=== PATIENT | female | born 1990 | race Caucasian/White ===

== ENCOUNTER 2020-04-21 05:24 | Outpatient (CLI) | payer OTHER, SELFPAY ==
[2020-04-21 05:44] VITALS: BMI 45.9
[2020-04-21 05:53] VITALS: TEMP 37.1; O2SAT 98
[2020-04-21 05:54] VITALS: BP 118/74; PULSE 106
[2020-04-21 06:33] VITALS: BP 113/68; PULSE 98
[2020-04-21 06:46] LABS: Absolute Lymphocyte Count 2.24 X10^3/uL (0.83-4.51); Absolute Neutrophil Count 8.5 X10^3/uL (2.0-7.7); Basophil# 0.03 X10^3/uL; Basophil% 0.3 % (0-1); Eosinophil# 0.11 X10^3/uL; Hemoglobin 11.8 g/dL (12.0-15.0); Lymphocyte # 2.24 X10^3/ul (4.0); Lymphocyte % 19.5 % (19-41); Mean Corp Hgb Conc 31.9 g/dL (32-36); Mean Corpuscular Hgb 27.2 pg (27.0-32.0); Mean Corpuscular Volume 85.3 fL (81-99); Mean Platelet Vol. 13.1 fl (6.2-12.0); Monocyte# 0.59 X10^3/uL; Monocyte% 5.1 % (0-10); NRBC Flagged by Analyzer 0 % (0-5); Neutrophil # 8.47 X10^3/uL (2.7-7.7); Neutrophil % 73.7 % (47-70); Platelet Count 140 K/mm3 (150-450); RBC Distribution Width SD 39.8 fl (35.1-43.9); Red Blood Count 4.34 M/mm3 (4.2-5.4); White Blood Count 11.5 K/mm3 (4.4-11.0)
[2020-04-21 06:50] VITALS: BP 120/76; PULSE 93
[2020-04-21 07:00] LABS: Protein, Urine (Random) 14.2 mg/dL (<11.9); Protein:Creat Ratio 134 mg/g CRE (0-200)
[2020-04-21 07:04] VITALS: BP 121/76; PULSE 93
[2020-04-21 07:18] LABS: ALB/GLOB Ratio 0.5 RATIO (0.9-2.4); AST(SGOT) 16 U/L (15-37); Alanine Aminotransfer ALT/SGPT 19 U/L (13-56); Albumin, Serum 2.3 g/dL (3.2-5.0); Alkaline Phosphatase 146 U/L (45-117); Amylase 47 U/L (25-115); Anion Gap 9 (5-15); BUN 9 mg/dL (7-18); BUN/Creat Ratio 11.3 RATIO (10-20); Calcium,Total 8.4 mg/dL (8.5-10.1); Chloride 106 mmol/L (98-107); EST Glomerular Filtration Rate 91 mL/min (>60); Est Glom Filt Rate - Afr Amer 110 mL/min (>60); Estimated Creatinine Clearance 106.56 ml/min; Globulin 4.2 g/dL (2.2-4.2); Glucose 100 mg/dL (74-106); Lipase 113 U/L (73-393); Potassium 3.7 mmol/L (3.5-5.1); Protein, Total 6.5 g/dL (6.4-8.2); Sodium Level 138 mmol/L (136-145); Uric Acid 4.5 mg/dL (2.6-6.0)
[2020-04-21 07:26] VITALS: BP 111/71; PULSE 88; TEMP 37.4
[2020-04-21] MEDS: Mag Hydrox/Al Hydrox/Simeth 30 ML UDC PO (07:40)
[2020-04-21] MEDS: Ondansetron 4 MG/2 ML Vial IV (07:40)
[2020-04-21] MEDS: HYDROmorphone 1 MG/ML Syringe IV (07:40)
--- NOTE | 2020-04-29 08:37 | OB.TRI.PN_ITS ---
Progress Notes Date of Service: 04/21/20 Progress Note: at 37w3d presenting for RUQ pain, back pain and mild headache. Denies any vaginal bleeding, leakage of fluid, or contractions. Pain 7/10 O: Gen: Alert and oriented x3 Heart: RRR, no murmur Lungs: Clear to auscultation bilaterally Abdomen: Gravid, non tender Cervix closed FHR 135, mod, accels, irregul ctx Mom's Current Diagnoses Dorsalgia, unspecified 04/21/20 Other specified related conditions, third trimester 04/21/20 Right upper quadrant pain 04/21/20 Headache, unspecified 04/21/20 37 weeks gestation of 04/21/20 Mom's Labs & Results 04/21/20 04/21/20 04/21/20 06:30 06:30 06:30 WBC 11.5 H RBC 4.34 Hgb 11.8 L Hct 37.0 MCV 85.3 MCH 27.2 MCHC 31.9 L RDW Std Deviation 39.8 RDW Coeff of Ajay 13.0 Plt Count 140 L MPV 13.1 H Immature Gran % (Auto) 0.400 Neut % (Auto) 73.7 H Lymph % (Auto) 19.5 [place] % (Auto) 5.1 Eos % (Auto) 1.0 Baso % (Auto) 0.3 Absolute Neuts (auto) 8.5 H Absolute Lymphs (auto) 2.24 Nucleated RBC % 0 Sodium 138 Potassium 3.7 Chloride 106 Carbon Dioxide 23.0 Anion Gap 9 BUN 9 Creatinine 0.80 Estim Creat Clear Calc 106.56 Est GFR (MDRD) Af Amer 110 Est GFR (MDRD) Non-Af 91 BUN/Creatinine Ratio 11.3 Glucose 100 Uric Acid 4.5 Calcium 8.4 L Total Bilirubin 0.60 AST 16 ALT 19 Alkaline Phosphatase 146 H Total Protein 6.5 Albumin 2.3 L Globulin 4.2 Albumin/Globulin Ratio 0.5 L Amylase 47 Lipase 113 U Random Total Protein 14.2 H Urine Creatinine 106.00 Protein/Creatinin Ratio 134 A:Musculoskeletal Pain P: 1) labs and BP nml 2) dilaudid for pain, zofran for nausea 3) D/C home. Preeclampia precautions reviewed. Laboratory Studies: Laboratory Tests 04/21/20 04/21/20 04/21/20 Range/Units 06:30 06:30 06:30 WBC 11.5 H (4.4-11.0) K/mm3 RBC 4.34 (4.2-5.4) M/mm3 Hgb 11.8 L (12.0-15.0) g/dL Hct 37.0 (37-47) % MCV 85.3 (81-99) fL MCH 27.2 (27.0-32.0) pg MCHC 31.9 L (32-36) g/dL RDW Std Deviation 39.8 (35.1-43.9) fl RDW Coeff of Ajay 13.0 (11.6-14.6) % Plt Count 140 L (150-450) K/mm3 MPV 13.1 H (6.2-12.0) fl Immature Gran % (Auto) 0.400 (0.0-0.9) % Neut % (Auto) 73.7 H (47-70) % Lymph % (Auto) 19.5 (19-41) % [place] % (Auto) 5.1 (0-10) % Eos % (Auto) 1.0 (0-5) % Baso % (Auto) 0.3 (0-1) % Absolute Neuts (auto) 8.5 H (2.0-7.7) X10^3/uL Absolute Lymphs (auto) 2.24 (0.83-4.51) X10^3/uL Nucleated RBC % 0 (0-5) % Sodium 138 (136-145) mmol/L Potassium 3.7 (3.5-5.1) mmol/L Chloride 106 (98-107) mmol/L Carbon Dioxide 23.0 (21.0-32.0) mmol/L Anion Gap 9 (5-15) BUN 9 (7-18) mg/dL Creatinine 0.80 (0.55-1.02) mg/dL Estim Creat Clear Calc 106.56 ml/min Est GFR (MDRD) Af Amer 110 (>60) mL/min Est GFR (MDRD) Non-Af 91 (>60) mL/min BUN/Creatinine Ratio 11.3 (10-20) RATIO Glucose 100 (74-106) mg/dL Uric Acid 4.5 (2.6-6.0) mg/dL Calcium 8.4 L (8.5-10.1) mg/dL Total Bilirubin 0.60 (0.20-1.00) mg/dL AST 16 (15-37) U/L ALT 19 (13-56) U/L Alkaline Phosphatase 146 H (45-117) U/L Total Protein 6.5 (6.4-8.2) g/dL Albumin 2.3 L (3.2-5.0) g/dL Globulin 4.2 (2.2-4.2) g/dL Albumin/Globulin Ratio 0.5 L (0.9-2.4) RATIO Amylase 47 (25-115) U/L Lipase 113 (73-393) U/L U Random Total Protein 14.2 H (<11.9) mg/dL Urine Creatinine 106.00 (NO RANGE EST.) mg/dL Protein/Creatinin Ratio 134 (0-200) mg/g CRE
== END 2020-04-21 08:55 | disposition home or self-care (01) ==
LOC: WPOUT 05:41 → OBT 05:42 → WP 07:16
PROVIDERS: PCP Family Medicine; Visit Provider Advanced Practice Midwife
DX: O26.893 Other specified pregnancy related conditions, third trimester (principal); R10.11 Right upper quadrant pain; M54.9 Dorsalgia, unspecified; R51.9 Headache, unspecified; Z3A.37 37 weeks gestation of pregnancy
CPT/HCPCS: 96374; 96375; 36415; 59025; 59050; 80053; 82150; 82570; 83690; 84156; 84550; 85025; 99218; G0378; J2405

== ENCOUNTER → 2020-04-29 17:24 | Outpatient (CLI) | payer OTHER, SELFPAY ==
[2020-04-21 05:44] VITALS: BMI 45.9
== END ==
PROVIDERS: PCP Family Medicine; Visit Provider Obstetrics & Gynecology
DX: Z03.818 Encounter for observation for suspected exposure to other biological agents ruled out (principal)
CPT/HCPCS: 87635; C9803; U0005; U0003

== ENCOUNTER 2020-05-01 23:55 | Inpatient (IN) | payer OTHER, SELFPAY ==
[2020-05-01 22:59] VITALS: BMI 46.2
[2020-05-01 23:16] VITALS: BP 131/77; PULSE 91; TEMP 36.8; O2SAT 98
[2020-05-02] VITALS (23 sets, daily range): BP systolic 95–131; BP diastolic 51–83; PULSE 75–111; RESP 12–29; TEMP 36.3–37.1; O2SAT 94–100
[2020-05-02] MEDS: 0.9% Saline Lock 10 ML Syringe IV ×5 (00:05→19:50)
[2020-05-02] MEDS: Lactated Ringers 1,000 ML 999 ML IV (00:05)
[2020-05-02 00:22] LABS: Absolute Lymphocyte Count 2.68 X10^3/uL (0.83-4.51); Absolute Neutrophil Count 8.2 X10^3/uL (2.0-7.7); Basophil# 0.04 X10^3/uL; Basophil% 0.3 % (0-1); Eosinophils% 0.8 % (0-5); Hematocrit 36.8 % (37-47); Hemoglobin 11.9 g/dL (12.0-15.0); Lymphocyte # 2.68 X10^3/ul (4.0); Lymphocyte % 22.8 % (19-41); Mean Corp Hgb Conc 32.3 g/dL (32-36); Mean Corpuscular Hgb 27.4 pg (27.0-32.0); Mean Corpuscular Volume 84.6 fL (81-99); Mean Platelet Vol. 13.7 fl (6.2-12.0); Monocyte# 0.76 X10^3/uL; Monocyte% 6.5 % (0-10); NRBC Flagged by Analyzer 0 % (0-5); Neutrophil # 8.15 X10^3/uL (2.7-7.7); Neutrophil % 69.3 % (47-70); Platelet Count 151 K/mm3 (150-450); RBC Distribution Width CV 13.3 % (11.6-14.6); RBC Distribution Width SD 41.6 fl (35.1-43.9); Red Blood Count 4.35 M/mm3 (4.2-5.4); White Blood Count 11.8 K/mm3 (4.4-11.0)
[2020-05-02] MEDS: Ondansetron 4 MG/2 ML Vial IV (01:53)
[2020-05-02] MEDS: fentaNYL 100 MCG/2 ML Ampul IV (03:40)
[2020-05-02] MEDS: Lactated Ringers 500 ML 999 ML IV (04:44)
[2020-05-02] MEDS: Lactated Ringers 1,000 ML 150 ML IV (05:40)
[2020-05-02] MEDS: Sodium Citrate/Citric Acid 30 ML UDC PO (05:40)
[2020-05-02] MEDS: Acetaminophen 500 MG Tablet 1000 MG PO ×3 (05:44→18:49)
--- NOTE | 2020-05-02 06:57 | PCM.HP.BLA ---
History and Physical Date of Admission: 05/02/20 Pre-Op History and Physical ? HPI: The patient is a 29 year old female presenting for pre-operative visit. She is scheduled for? and?bilateral salpingectomy, for?previous c/s, LGA fetus and polyhydramnios and sterilization request on?05/04/2020. ??Procedure discussed along with risks, benefits and complications. ?Other alternatives discussed for management. Consent form signed??Yes.? PAST MEDICAL HISTORY PAST MEDICAL HISTORY Diagnosis Date ? Anxiety in in third trimester, antepartum 02/24/2020 ? Asthma ? ? childhood asthma ? Chronic headaches ? ? no issues since 2016 ? ? PAST SURGICAL HISTORY PAST SURGICAL HISTORY Procedure Laterality Date ? DELIVERY ONLY ? 2019 ? Cat2, remote from delivery ? TONSILLECTOMY HX ? 1997 ? ? CURRENT MEDICATIONS Current Outpatient Medications Medication Sig Dispense Refill ? ondansetron (ZOFRAN) 4 mg tablet Take 1 tablet by mouth every 8 hours as needed for Nausea/Vomiting. 30 tablet 0 ? phenazopyridine (PYRIDIUM) 100 mg tablet Take 1 tablet by mouth three times daily as needed. 9 tablet 0 ? sertraline (ZOLOFT) 25 mg tablet Take 2 tablets by mouth once daily. Start by taking one tablet by mouth once daily for one week. Then increase to two tablet by mouth once daily. 60 tablet 2 ? famotidine (PEPCID) 40 mg tablet Take 1 tablet by mouth once daily. 30 tablet 2 ? MAGNESIUM ORAL Take by mouth twice daily. ? ? ? acetaminophen (TYLENOL) 325 mg tablet Take 650 mg by mouth every 6 hours as needed. ? ? ? Izbmfezv-Tj-Xrz-Fe-FA ( VITAMIN) tab Take 1 tablet by mouth. ? ? ? No current facility-administered medications for this visit. ? ALLERGIES:?Suprax [Cefixime] ? PERSONAL HISTORY:? SOCIAL HISTORY Social History ? Tobacco Use ? Smoking status: Former Smoker ? ? Years: 3.00 ? ? Quit date: 2012 ? ? Years since quittin.0 ? Smokeless tobacco: Never Used Substance Use Topics ? Alcohol use: No ? Drug use: No ? FAMILY HISTORY:? FAMILY HISTORY FAMILY HISTORY Problem Relation Age of Onset ? Headache Mother ? ? Diabetes Father ? ? Multiple Sclerosis Brother ? ? Diabetes Maternal Grandmother ? ? Hypertension Maternal Grandmother ? ? Ovarian cancer Paternal Grandmother ? ? Heart Paternal Grandfather ?CHF ? Breast Cancer No Family History ? ? Cervical Cancer No Family History ? ? Uterine Cancer No Family History ? ? Colon Cancer No Family History ? ? Pancreatic Cancer No Family History ? ? Prostate Cancer No Family History ? ? REVIEW OF SYMPTOMS: GENERAL: denies fevers or chills ENDOCRINOLOGY: has not been on steroids Cardiology : denies palpitations or chest pain Respiratory: denies SOB or cough Hematology: denies history of prolonged bleeding or easy bruising or VTE Allergy: Denies history of personal or family history of allergy to anesthesia ? ? PHYSICAL EXAMINATION: ? VITALS:?Blood pressure 114/70, weight 300 lb (136.1 kg), last menstrual period 08/03/2019, currently . ? GENERAL:??The patient is well nourished, well hydrated in no acute distress. ?, The patient is oriented to time, place, and person. NECK:?Supple. No lynphadenopathy, normal thyroid, no thyromegaly. LUNGS:?Clear to auscultation bilaterally. no wheezes, rhonchi or rales HEART:?Regular rate and rhythm, Normal heart sounds and No murmurs or gallops ABD- soft, nontender, gravid ? IMPRESSION:?Estimated Date of Delivery: 05/09/20? for repeat c/s and bilateral salpingectomy for sterilization request ? ? PLAN:???The risks/benefits/alternatives and personal involved for the planned?c/s and bilateral salpingectomy?were reviewed with the patient. Her questions were answered to her satisfaction and she desires to proceed. ?Consent was signed. ?I reviewed with her postop instructions and expectations. ? ? I have reviewed and updated past medical and surgical history, medications and allergies. This H&P was completed in my office on 04/29/20 Update- Patient arrived 05/02/2020 with SROM and contractions. C/s to be performed today due to labor and SroM
--- NOTE | 2020-05-02 06:58 | OP.PCM_ITS ---
Delivery Classification: Scheduled Final GRADY: 05/10/20 Final GRADY Source: US <20 weeks Gestational age: 38 Weeks and 6 Days clinical science liaison: Ryan Moraes Type of Anesthesia:: Spinal Special Medications: duramorph Implants Used: none Date of Procedure: 05/02/20 Pre-Operative Diagnosis: 39 weeks, previous c/s, SROM, sterilization request Post-Operative Diagnosis: same Description of Procedure: The patient was taken to the operating room. She was prepped and draped in the dorsal supine position with a leftward tilt. A Pfannenstiel skin incision was made approximately 2 cm above the symphysis pubis and carried through to underlying layer fascia with the scalpel. The fascia was incised incised in the midline and extended laterally with the Herrera scissors. The fascia was dissected off the rectus muscles with blunt and sharp dissection. The rectus muscles were in the midline and the peritoneum was entered bluntly. The peritoneal incision was stretched and the bladder blade was placed. The uterine incision was made in a low transverse fashion with the scalpel and extended superiorly and inferiorly with blunt dissection. The amniotic membranes were ruptured bluntly and clear amniotic fluid returned. The infant's head was brought to the incision in the flexed position and delivered without difficulty. The remainder of the was delivered with gentle traction and fundal pressure in the standard fashion. The mouth and nares were bulb suctioned. The cord was clamped and cut as the was stimulated. Cord clamping was delayed. The infant was handed off to the waiting nursing staff. The placenta was delivered with fundal massage and gentle traction in the standard fashion. The uterus was exteriorized and cleared of all clots and debris. . The uterine incision was closed with #1 Vicryl in a running locked fashion. A second layer of the same suture was used in an imbricating fashion. The incision was examined and was found to be hemostatic. However, there was a small hematoma in the uterine serosa near the midline incision. 2 [id number] 0 Vicryl sutures were placed around this and hemostasis was noted in the hematomas were not extending. The bilateral salpingectomy was then performed. The right fallopian tube was identified and followed out to the fimbriated ends. It was held up by Ray clamps. The antimesenteric portion was clamped, sealed, and transected with the LigaSure device. Hemostasis was noted. The cornual insertion of the tube was then clamped across, sealed and transected with the LigaSure device. All pedicles were hemostatic. The same procedure was performed on the contralateral side. The uterus was placed to the peritoneal cavity which was cleared of all clots and debris and again the tubal sites were hemostatic. The hematoma on the uterine surface was not extending. Some Luther was placed over the uterine incision. The uterus was placed back into the peritoneal cavity and hemostasis was again confirmed. The rectus muscles were examined and any bleeding was Bovie cauterized. The parietal peritoneum and rectus muscles were closed en bloc with an 0 Vicryl running suture. The surgical teams outer gloves were then changed. The rectus fascia was examined and any bleeding was Bovie cauterized and the rectus fascia was closed with #1 PDS suture in a running standard fashion. The subcutaneous tissue was examining and any bleeding was Bovie cauterized. The subcutaneous tissue was reapproximated with 3-0 Vicryl suture. The skin was closed in a subcuticular fashion by the MUSIC PRODUCER with me present in the labor and delivery suite. I performed the remainder of the procedure with assistance. All sponge, lap, and needle counts were correct. The patient was taken to her room for recovery in a stable condition. Start time 0624 Delivery time 06 Stop time 0704 Amniotic Membrane Rupture Type: Spontaneous Amniotic Fluid Description: Clear Placenta Disposition: [facility] Specimen(s) sent to pathology: bilateral fallopian tubes Drain: Minaya to straight drain Fluids Replaced: 1000 mL Cord Entanglement: None Esitmated Blood Loss (ml): 800 Infant Gender: Male (1 minute): 8 (5 minute): 8 Delayed cord clamping: Yes Antibiotic Given: Ancef 3 grams IV x1, Zithromax 500 mg/5 mL X1 Complications: None - Admit VTE Documentation VTE Present on Admission: No VTE Mechan Device Prophylaxis: SCD's VTE Pharm Prophylaxis ordered?: Yes
[2020-05-02] MEDS: Oxytocin 30 units/NS 500 ml 30 UNITS/500 ML IV.SOLN 167 UNITS IV (07:20)
--- NOTE | 2020-05-02 07:29 | FALS_PTH ---
PATIENT: HAYLIE DEL TORO LOC: [facility] U#:[id number] AGE/SX: 29/F ROOM: WP007 RE05/01/[address]: Dr. Teresita Chery MD : 1990 BED: 1 DIS: 05/04/2020 SPEC #: [id number] RECD: 05/02/20 07:38 STATUS: ANGEL RECely #: [id number] DARYL: 05/02/20 07:[address]: Teresita Chery DEPT: SURGICAL PATHOLOGY RECD BY: Amberly Swan ENTERED: 05/04/20 07:49 SP TYPE: FALL TUBES OTHR DR: Dr. Cesar Nunez MD Tissues: Fallopian tube Procedures: Surgery Specimen Level II HEADER OPERATION: Tubal ligation PRE-OP DIAGNOSIS: Sterilization TISSUE SUBMITTED: Fallopian tubes MICROSCOPIC DIAGNOSIS Bilateral fallopian tubes, salpingectomy: Bilateral fallopian tubes including fimbrial ends, no pathologic diagnosis. JAYE:alek 05/05/2020 MICROSCOPIC DESCRIPTION Slides are reviewed. GROSS DESCRIPTION Received in fixative is one container labeled with the patient's name and designated bilateral fallopian tubes, left tube suture. The specimen consists of bilateral fallopian tubes including fimbrial ends. The right tube measures 6.5 cm in length and 1 cm in diameter. The left tube measures 6 cm in length and up to 1 cm in diameter. Sections reveal unremarkable cut surfaces. Direct Marketing Representative sections are submitted in two cassettes as follows: 1 - right fallopian, 2 - left fallopian tube. / JAYE:alek 05/04/20 TC:4 CPT: 70479 x2
--- NOTE | 2020-05-02 08:07 | NURSING ---
A total of two Luther were used during x1 w/ lot #[id number], exp 10/05/2024 x1 w/ lot #[id number], exp 12/05/2024 Ligature device was used during for b/l salpingectomy. Device lot #[id number], use by:12-31-2024
[2020-05-02] MEDS: Senna/Docusate Sodium 1 Tablet PO (10:26)
[2020-05-02] MEDS: Lactated Ringers 1,000 ML 100 ML IV (10:28)
[2020-05-02] MEDS: Ketorolac 30 MG/ML Syringe IV ×2 (11:59→18:49)
--- NOTE | 2020-05-02 13:58 | CASEMGMT ---
Social Work Assessment Labor and Delivery Unit Date of Referral: 05/02/20 Time of Referral: 5:49am Referred By: Karol Neri Date of Intervention: 05/02/20 Time of Intervention: 12:30pm Reason for Referral: PMH--Anxiety History Obtained from: MOB, FOB also present during conversation Household composition: MOB, FOB, 2 year old daughter, and baby Parent/Guardian Status: MOB and FOB have custody of both children Medical History: MOB: Asthma, chronic headaches, anxiety. Baby: born 05/02/20, 6:27am, 9lb 5oz. Baby jittery as per physician note, MOB had received one dose of dilaudid on 04/21/20 in triage for pain. Apgars 8 & 8. Educational Status: MOB has associate's degree. FOB completed high school and trade school. 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 No financial concerns. MOB plans to return to work. MOB's mother will care for the children when she works. Supplies: MOB and FOB report having all needed supplies including car seat, crib, bassinet, clothing, diapers, formula if needed. MOB plans to breastfeed, and was when SW in room. Childcare/Caregivers: MOB's mother watches children, MOB's father and FOB's mother also available to assist. Transportation: They have access to transportation. Programs/Agencies involved: None, information on [employer] given. Children's Services/Legal Issues: None Behavioral Health: Mental Health history: FOB, none. MOB, history of anxiety. MOB states looking back she does think she had depression after the first child was born. She is on zoloft and has continued that throughout . MOB is not in counseling at this time and does not anticipate needing counseling. Substance abuse history: None. Drug Screens: None on MOB or baby on this admission. No concerns for safety at home identified by MOB. Family/Social Stressors: None Support systems: MOB's parents, FOB's mother Depression and Anxiety/Shaken Baby/Safe Sleeping: SW gave pt information on all of these topics and reviewed with MOB and FOB. Assessment: MOB and FOB appropriate, answered all questions. MOB holding baby and while SW in room, appropriate w/baby. No concerns. Plan: Baby to go home with parents at discharge. No further social service needs anticipated. STAS Allen
[2020-05-02] MEDS: Enoxaparin 40 MG/0.4 ML Syringe SC (18:49)
[2020-05-03] MEDS: Ketorolac 30 MG/ML Syringe IV ×2 (00:12→06:54)
[2020-05-03] MEDS: Acetaminophen 500 MG Tablet 1000 MG PO ×4 (00:13→18:50)
[2020-05-03 00:20] VITALS: BP 122/66; PULSE 68; RESP 16; TEMP 36.6; O2SAT 98
[2020-05-03 02:00] VITALS: PULSE 78; RESP 18; O2SAT 98
[2020-05-03 04:15] VITALS: BP 107/59; PULSE 92; RESP 16; TEMP 36.4; O2SAT 96
[2020-05-03 04:39] LABS: Mean Corp Hgb Conc 31.3 g/dL (32-36); Mean Corpuscular Volume 86.3 fL (81-99); Mean Platelet Vol. 12.3 fl (6.2-12.0); Platelet Count 131 K/mm3 (150-450); RBC Distribution Width CV 13.8 % (11.6-14.6); Red Blood Count 3.71 M/mm3 (4.2-5.4); White Blood Count 11.8 K/mm3 (4.4-11.0)
[2020-05-03] MEDS: Enoxaparin 40 MG/0.4 ML Syringe SC ×2 (06:55→18:30)
[2020-05-03] MEDS: 0.9% Saline Lock 10 ML Syringe IV (06:56)
[2020-05-03 08:20] VITALS: BP 111/74; PULSE 83; RESP 18; TEMP 37.3; O2SAT 97
--- NOTE | 2020-05-03 09:52 | PN.OBGYN_ITS ---
Subjective: Patient seen at bedside. Sitting up in chair at bedside. going well. Pain controlled with PO medications. Ambulating and passing flatus. Desires discharge home tomorrow. Objective: Dressing Dry and intact Fundus firm 2 below U - Physical Exam Vitals/I&O's: Vital Signs Temp Pulse Resp BP Pulse Ox 97.5 F L 92 16 107/59 L 96 05/03/20 04:15 05/03/20 04:15 05/03/20 04:15 05/03/20 04:15 05/03/20 04:15 Oxygen Delivery Method Room Air Weight: 303 lb 12.8 oz Body Mass Index (BMI) 46.2 Intake and Output for Last 24 Hours 05/01/20 05/02/20 05/03/20 23:59 23:59 23:59 Intake Total 3794.17 / 3794.17 Output Total 380 / 380 450 / 450 Balance 3414.17 / 3414.17 -450 / -450 General: Alert, Oriented x3 HEENT: Atraumatic, PERRLA, EOMI, Normocephalic Neck: Supple Lungs: Clear to auscultation, Normal air movement Cardiovascular: Regular rate, No murmurs Abdomen: Soft, Passing Flatus, Obese Extremities: Capillary Refill Less than 3 Seconds, No Calf Tenderness Neurological: Cranial nerves II-XII grossly intact Psych/Mental Status: Normal Affect, Appropriate Laboratory Results 05/03/20 04:30: WBC 11.8 H, RBC 3.71 L, Hgb 10.0 L, Hct 32.0 L, MCV 86.3, MCH 27.0, MCHC 31.3 L, RDW Std Deviation 43.0, RDW Coeff of Ajay 13.8, Plt Count 131 L, MPV 12.3 H Current Medications Acetaminophen (Acetaminophen 500 Mg Tablet) 1,000 mg PO Q6 [facility] Last Admin: 05/03/20 06:55 Dose: 1,000 mg Documented by: Bisacodyl (Bisacodyl 10 Mg Suppository) 10 mg RECTAL UD PRN PRN Reason: If no BM Enoxaparin Sodium (Enoxaparin 40 Mg/0.4 Ml Syringe) 40 mg SC Q12H [facility] Last Admin: 05/03/20 06:55 Dose: 40 mg Documented by: Hydrocortisone (Hydrocortisone 2.5% Crm) 1 applic TOPICAL TID PRN PRN; Protocol PRN Reason: Discomfort Methylergonovine Maleate (Methylergonovine 0.2 Mg/Ml Ampul) 0.2 mg IM X1 PRN PRN Reason: Uterine Atony Naloxone HCl (Naloxone 0.4 Mg/Ml Syringe) 0.02 mg IV Q1M PRN PRN Reason: RR <10 and pt unresponsive Naproxen (Naproxen 250 Mg Tablet) 500 mg PO Q8 [facility] Ondansetron HCl (Ondansetron 4 Mg/2 Ml Vial) 4 mg IV Q4H PRN PRN PRN Reason: Nausea Oxycodone HCl (Oxycodone 5 Mg Tablet) 5 - 10 mg PO Q4H PRN PRN PRN Reason: Pain Score 4-10 Prochlorperazine Edisylate (Prochlorperazine 10 Mg/2 Ml Vial) 10 mg IV Q6H PRN PRN PRN Reason: NAUSEA Senna/Docusate Sodium (Senna/Docusate Sodium 1 Tablet) 0 tablet PO DAILY [facility] Last Admin: 05/02/20 10:26 Dose: 1 tablet Documented by: Simethicone (Simethicone 80 Mg Tablet) 80 mg PO PCHS PRN PRN Reason: Indigestion/stomach pain Sodium Chloride (0.9% Saline Lock 10 Ml Syringe) 5 - 15 ml IV UD PRN PRN Reason: SALINE FLUSH Last Admin: 05/03/20 06:56 Dose: 10 ml Documented by: Medical Necessity - Tobacco Use Smoking Status: Former smoker Assessment/Plan POD #1 R C/S with bilateral tubal ligation Routine care Pain control support Anticipate discharge home tomorrow
[2020-05-03] MEDS: Senna/Docusate Sodium 1 Tablet PO (10:35)
[2020-05-03] MEDS: Naproxen 250 MG Tablet 500 MG PO ×2 (14:46→21:39)
[2020-05-03 14:48] VITALS: BP 104/77; PULSE 76; RESP 20; TEMP 37.2; O2SAT 99
[2020-05-03 20:20] VITALS: BP 110/74; PULSE 95; RESP 18; TEMP 36.3; O2SAT 96
[2020-05-04] MEDS: Acetaminophen 500 MG Tablet 1000 MG PO ×2 (00:14→06:59)
[2020-05-04 02:00] VITALS: BP 117/68; PULSE 76; RESP 16; TEMP 36.6; O2SAT 97
[2020-05-04] MEDS: Naproxen 250 MG Tablet 500 MG PO (05:12)
--- NOTE | 2020-05-04 08:55 | PN.OBGYN_ITS ---
Subjective: No complaints - Physical Exam Vitals/I&O's: Vital Signs Temp Pulse Resp BP Pulse Ox 97.9 F 76 16 117/68 97 05/04/20 02:00 05/04/20 02:00 05/04/20 02:00 05/04/20 02:00 05/04/20 02:00 Oxygen Delivery Method Room Air Weight: 303 lb 12.8 oz Body Mass Index (BMI) 46.2 Intake and Output for Last 24 Hours 05/02/20 05/03/20 05/04/20 23:59 23:59 23:59 Intake Total 3794.17 / 3794.17 Output Total 380 / 380 450 / 450 Balance 3414.17 / 3414.17 -450 / -450 General: Alert, Oriented x3 Abdomen: Soft, Non Tender, Non-Distended - ff mid & below umb; bandage - c/d/i Extremities: No Calf Tenderness Current Medications Acetaminophen (Acetaminophen 500 Mg Tablet) 1,000 mg PO Q6 [facility] Last Admin: 05/04/20 06:59 Dose: 1,000 mg Documented by: Bisacodyl (Bisacodyl 10 Mg Suppository) 10 mg RECTAL UD PRN PRN Reason: If no BM Enoxaparin Sodium (Enoxaparin 40 Mg/0.4 Ml Syringe) 40 mg SC Q12H [facility] Last Admin: 05/04/20 05:30 Dose: Not Given Documented by: Hydrocortisone (Hydrocortisone 2.5% Crm) 1 applic TOPICAL TID PRN PRN; Protocol PRN Reason: Discomfort Methylergonovine Maleate (Methylergonovine 0.2 Mg/Ml Ampul) 0.2 mg IM X1 PRN PRN Reason: Uterine Atony Naloxone HCl (Naloxone 0.4 Mg/Ml Syringe) 0.02 mg IV Q1M PRN PRN Reason: RR <10 and pt unresponsive Naproxen (Naproxen 250 Mg Tablet) 500 mg PO Q8 [facility] Last Admin: 05/04/20 05:12 Dose: 500 mg Documented by: Ondansetron HCl (Ondansetron 4 Mg/2 Ml Vial) 4 mg IV Q4H PRN PRN PRN Reason: Nausea Oxycodone HCl (Oxycodone 5 Mg Tablet) 5 - 10 mg PO Q4H PRN PRN PRN Reason: Pain Score 4-10 Prochlorperazine Edisylate (Prochlorperazine 10 Mg/2 Ml Vial) 10 mg IV Q6H PRN PRN PRN Reason: NAUSEA Senna/Docusate Sodium (Senna/Docusate Sodium 1 Tablet) 0 tablet PO DAILY [facility] Last Admin: 05/03/20 10:35 Dose: 2 tablet Documented by: Simethicone (Simethicone 80 Mg Tablet) 80 mg PO PCHS PRN PRN Reason: Indigestion/stomach pain Sodium Chloride (0.9% Saline Lock 10 Ml Syringe) 5 - 15 ml IV UD PRN PRN Reason: SALINE FLUSH Last Admin: 05/03/20 06:56 Dose: 10 ml Documented by: Medical Necessity - Tobacco Use Smoking Status: Former smoker Assessment/Plan POD#2 D/c home per patient request
--- NOTE | 2020-05-04 08:56 | DCINST_ITS ---
Discharge Diet: No Restrictions Discharge Activity: May Drive - after 1-2 weeks, May Shower May resume sexual activity in: 6 weeks Weight Bearing Status: Weight bearing as tolerated Call your doctor if your incision/area has: Continuous Slow Oozing, Sudden Incre ased Bleeding, Increased Pain/ Swelling, Increased Redness, Foul Smelling Discharge, Swelling at the incision site Additional Instructions: If you experience any of the following, contact your healthcare provider. * Bleeding that soaks a pad every hour for 2 hours * Fever 100.4 or higher * Unrelieved incision or abdominal pain * Swelling, redness, discharge or bleeding from your incision or episiotomy site * Your incision begins to separate * Problems urinating (including inability to urinate or burning while urinating). * Visual changes * Severe headache * Flu-like symptoms * Pain or redness in one of both of your breasts * Pain, warmth, tenderness or swelling in your legs, especially the calf area * Frequent nausea and vomiting * Symptoms of depression or anxiety If you experience any of the following, call 911 or go to the nearest Emergency Room. * Chest pain * Problems breathing * Seizure activity * Partial or complete paralysis of a body part, slurred speech, weakness or drooping of the face, or a sudden inability to walk or hold your balance Allergies/Adverse Reactions: Allergies cefixime [From Suprax] Allergy (Verified 04/21/20 05:56) Hives Medications to take at Discharge Acetaminophen [Tylenol Extra Strength] 500 - 1,000 mg PO Q6H PRN PRN 04/21/20 Famotidine [Pepcid] 40 mg PO DAILY 04/21/20 Vits [Prenatabs FA ] 1 tab PO DAILY 04/21/20 Sertraline HCl [Zoloft] 50 mg PO DAILY 04/21/20 Acetaminophen [Tylenol] 1,000 mg PO Q6 tablet 05/04/20 Naproxen [Naprosyn] 500 mg PO Q8 tablet 05/04/20 Follow-Up: Call to make an appointment with your doctor for an incision check in 1-2 weeks. You will also need a 6 week post- follow up appointment. Test results from this visit will be discussed in further detail at your follow- up appointment, if applicable. Primary Care Physician: Cesar Nunez MD [Primary Care Provider] -
[2020-05-04 09:07] VITALS: BP 119/68; PULSE 70; RESP 18; TEMP 36.7; O2SAT 97
[2020-05-05 15:23] LABS: Pathology Specimen OB SEE PATHOLOGY REPORT
== END 2020-05-04 10:30 | disposition home or self-care (01) | DRG 785 ==
LOC: OBT 05-02 00:03 → WP 05-02 00:03
PROVIDERS: Admitting Provider Obstetrics & Gynecology; PCP Family Medicine; Visit Provider Obstetrics & Gynecology
DX: O34.219 Maternal care for unspecified type scar from previous cesarean delivery (principal); O36.60X0 Maternal care for excessive fetal growth, unspecified trimester, not applicable or unspecified; O40.9XX0 Polyhydramnios, unspecified trimester, not applicable or unspecified; Z30.2 Encounter for sterilization; J45.909 Unspecified asthma, uncomplicated; O99.52 Diseases of the respiratory system complicating childbirth; O99.344 Other mental disorders complicating childbirth; F41.9 Anxiety disorder, unspecified; Z87.891 Personal history of nicotine dependence; Z37.0 Single live birth; Z3A.38 38 weeks gestation of pregnancy
CPT/HCPCS: 59025; 59050; 85025; 85027; 86850; 86900; 86901; 88302; 99218; 99251; J7120; A4216; G0378; G0463; J2405

== ENCOUNTER → 2020-05-07 13:59 | Day surgery (SDC) | payer OTHER, SELFPAY ==
[2020-05-01 22:59] VITALS: BMI 46.2
[2020-05-07] MEDS: Lactated Ringers 1,000 ML 999 ML IV (15:25)
== END ==
PROVIDERS: PCP Family Medicine; Referring Provider Anesthesiology; Visit Provider Anesthesiology
PROC: 3E0R3GC Introduction of Other Therapeutic Substance into Spinal Canal, Percutaneous Approach (ICD-10-PCS; CPT 62273; principal; 2020-05-07 13:55)
DX: O89.4 Spinal and epidural anesthesia-induced headache during the puerperium (principal)
CPT/HCPCS: 62273; J7120